=== PATIENT | male | born 1930 | race Caucasian/White ===

== ENCOUNTER 2018-11-02 15:37 | Observation (INO) | payer MEDICARE ==
[~2018-11-02] VITALS: Ht 177.8 cm; Wt 96.0 kg
[~2018-11-02 15:37] MED LIST: ASPI325T6 PO; ASPIR-LOW81 MG PO; ASPIRIN E.C. 8181 MG PO; FERROUS SU325 MG/TAB PO; FISH OIL CONC1000 MG PO; FISH OIL CONCEN1 SG2 PO; FOLIC ACID; FOLIC ACID 40400 MCG PO; MULTIPLE VITAMI1 TA1 PO; MVI; NIACIN; NIACOR500 MG PO; NORCO 325 MG-7.1 TAB PO; VITAMIN C250250 MG PO; VITAMINC500CH; ZOCOR; ZOCOR 20MG20 MG PO
[2019-05-06] MEDS ORDERED: KAPSPARGO SPRIN50 MG PO (00:47)
[2019-05-06] MEDS ORDERED: COZAAR 50MG50 MG/TAB PO (00:48)
[2019-05-06] MEDS ORDERED: ELIQUIS 5MG PO (00:49)
[2019-05-06] MEDS ORDERED: VITAMINC250CH PO (00:51)
[2019-05-06] MEDS ORDERED: LIPOFEN50 M1 PO (00:52)
[2019-05-06] MEDS ORDERED: TRICOR 48MG48 MG PO (00:53)
[2019-05-06] MEDS ORDERED: ASPIRIN 81M81 MG/TA2 (00:56)
[2019-05-06] MEDS ORDERED: TOPROL XL 50MG50 MG PO (05:41)
[2019-05-06 05:43] VITALS: BP 136/98; PULSE 96; TEMP 97.9
[2019-05-06 05:46] VITALS: BP 136/98; PULSE 96; TEMP 97.9
[2019-05-06 06:05] LABS: HEMOGLOBIN 17.7 g/dl (13.5-18.0)
--- NOTE | 2019-05-06 06:10 | NUR ---
arrived on unit per at 0515 to room 332, prepped for surgery without incident, explanation given to he and his forgoing to and returning from surgery, verbalizes understanding
[2019-05-06 06:15] LABS: CALCIUM 9.6 mg/dL (8.4-10.2); CREATININE, serum 1.59 (0.66-1.25)
[2019-05-06 06:17] LABS: HEMATOCRIT 53.7 % (42.0-52.0)
--- NOTE | 2019-05-06 07:30 | NUR ---
returned to room per bed, surgery cancelled, resting in bed with at bedside
--- NOTE | 2019-05-06 07:38 | NUR ---
Dr Sydni dodd for cardiology consult
--- NOTE | 2019-05-06 07:40 | NUR ---
telemetry on and transmission confirmed with page technician
--- NOTE | 2019-05-06 08:21 | NUR ---
spoke with Leonel MIGUEL with Dr Troy and given report for consult
--- NOTE | 2019-05-06 08:45 | NUR ---
in bed and trying to rest, informed he and his had spoke with Dr Suad MIGUEL regarding consult
[2019-05-06 08:54] VITALS: BP 152/73; PULSE 90; TEMP 97.6
--- NOTE | 2019-05-06 11:00 | NUR ---
Dr Templeton and MYRIAM in to see patient and spoke with patient and his , informed this nurse he would make a note and it was OK for Dr Watkins to proceed with surgery from his perspective, notified Dr [facility] at [facility] and informed of this, Dr Watkins does not feel comfortable doing the surgery today and wants me to inform patient and his of this, provided Dr Watkins with MYRIMA nurse's cell phone number so he can visit with Dr Templeton
[2019-05-06 11:02] VITALS: BP 164/109; PULSE 88; TEMP 97.5
--- NOTE | 2019-05-06 11:10 | NUR ---
informed Dr Templeton and Leonel MIGUEL of patient's BP of 169/109
--- NOTE | 2019-05-06 11:31 | NUR ---
spoke wiht patient and his regarding Dr Watkins not feeling comfortable doing surgery today, the especially has questions as to what will happen next, encouraged her to call replanting machine operator on Friday and also Dr Watkins' office and ask the questions she has, verbalizes understanding
--- NOTE | 2019-05-06 11:47 | NUR ---
Delilah from Case Management and Flory from Case Manager in and talking with patient and his
--- NOTE | 2019-05-06 11:54 | NUR ---
spoke with Osman, who is a nurse in the operating room with Dr Watkins, asked him to inform Dr Watkins the still has many questiona dn needs to talk with him before they discharge
--- NOTE | 2019-05-06 12:25 | NUR ---
spoke with Dr Watkins and explained to him the continues to be upset and wondering about why the cardiology and telemetry was done, that I think she may want to talk with him before they leave
--- NOTE | 2019-05-06 12:50 | NUR ---
and patient are now asking if they can just go, have explained to them again why Dr Watkins order the cardiology consult and that he is not comfortable doing the surgery and they would need to follow up with Dr Watkins, explained to them that Dr Watkins is more than happy to come and visit with them this afternoon but now they are just ready to go home, again, said Dr Watkins would come by and when the asked him he said he would just like to go ahead and go home
--- NOTE | 2019-05-06 13:03 | NUR ---
The patient's status was switched from inpatient to observation. ROSANGELA and water pump installer, Delilah, met with the patient and his to inform and to present and explain the ESTRADA form. The patient's expressed her concerns about insurance and frustrations. ROSANGELA and water pump installer provided support and answered all questions. The patient verbalized understanding, signed, and he was provided a copy. ROSANGELA then followed up with the patient and his , Lula (ph#[phone]), to discuss discharge plan. The patient lives in [place] with his . He reports independence with ADLs and does not have any DME. The patient's PCP is Dr. Rell Amaro and he receives his medications at [facility] or [facility]. He reports no difficulties obtaining his meds. The patient does not have advanced directives in EMR, but he states that he does have them completed and that his is his DPOA-HC. The patient plans to return home with his upon discharge. No additional needs at this time.
--- NOTE | 2019-05-06 13:20 | NUR ---
spoke with Dr Watkins regarding patinet asking to go home now, will plan discharge
== END 2019-05-06 13:20 | disposition home or self-care (01) ==
LOC: JCC 12-31 07:30
PROVIDERS: Nurse Anesthetist, Certified Registered; ADMIT Orthopaedic Surgery
DX: M19.011 Primary osteoarthritis, right shoulder (principal); Z53.8 Procedure and treatment not carried out for other reasons; I48.19 Other persistent atrial fibrillation; Z79.01 Long term (current) use of anticoagulants; I10 Essential (primary) hypertension; Z94.7 Corneal transplant status; Z79.899 Other long term (current) drug therapy; Z87.891 Personal history of nicotine dependence; Z80.9 Family history of malignant neoplasm, unspecified; R20.2 Paresthesia of skin; I70.0 Atherosclerosis of aorta; Z86.19 Personal history of other infectious and parasitic diseases
CPT/HCPCS: G0378; G0379; J0330; J1100; J2250; J2405; J2704; J2795; J7120

== ENCOUNTER → 2018-12-23 | Outpatient (CLI) | payer MEDICARE | LOC: COL.VAS 10:58 | DX: Z01.818 Encounter for other preprocedural examination (principal); I51.7 Cardiomegaly; I48.91 Unspecified atrial fibrillation; I35.1 Nonrheumatic aortic (valve) insufficiency; I34.8 Other nonrheumatic mitral valve disorders ==

== ENCOUNTER 2019-06-03 09:32 | Inpatient (IN) | payer MEDICARE ==
[~2019-06-03] VITALS: Ht 177.8 cm; Wt 91.9 kg
[~2019-06-03 09:32] MED LIST changes: +ASPIRIN 81M81 MG/TA2; +COZAAR 50MG50 MG/TAB PO; +ELIQUIS 5MG PO; +KAPSPARGO SPRIN50 MG PO; +LIPOFEN50 M1 PO; +TOPROL XL 50MG50 MG PO; +TRICOR 48MG48 MG PO; +VITAMINC250CH PO
[2019-06-15] MEDS ORDERED: VITAMIN C500 MG PO (11:19)
[2019-06-15] MEDS ORDERED: ALEVE 220MG220 MG PO (11:19)
[2019-06-15] MEDS ORDERED: VITAMIN FLUSH-F1 CAP (11:20)
[2019-06-17] MEDS ORDERED: BETAPACE 80MG80 MG PO (12:11)
[2019-07-12] VITALS (11 sets, daily range): BP systolic 127–171; BP diastolic 60–75; PULSE 44–94; TEMP 97.4–98
[2019-07-12] MEDS ORDERED: TOPROL XL 50MG50 MG PO (04:04)
[2019-07-12] MEDS ORDERED: ASPIRIN 81M81 MG/TA2 PO (04:05)
[2019-07-12] MEDS ORDERED: PROFERRIN ES12 MG (04:08)
--- NOTE | 2019-07-12 11:42 | NUR ---
PATIENT TO ROOM 327 PER BED WITH REPORT FROM TYSON PRASAD PACU @ 5777 PT IS A/O X3 DROWSEY AROUSES TO VERBAL. DRESSING TO RIGHT SHOULDER CDI WITH AQUACEL OVER INCISION. PT HAS CHRONIC A-FIB AND HAS BEEN IN AND OUT TODAY. CURRENTLY REGULAR RYTHM. IV TO PUMP PER ORDERS. SCDS AND TEDS BILATERALLY.
--- NOTE | 2019-07-12 11:48 | NUR ---
PT'S AT BEDSIDE. QUESTIONS ANSWERED.
--- NOTE | 2019-07-12 13:35 | NUR ---
Motorboat Mechanic met with patient and patient's Lula (ph#[phone]) to discuss discharge planning. Patient lives in [place], [place] with his and sees Dr. Amaro for primary care. Patient obtains medications from [facility] in [place] and does not use any DME. Patient is mostly independent with ADLS although he did trip and fall at home. Lula reports it was dark and patient tripped over a magazine rack. Patient plans on returning home upon discharge with his providing transportation.
--- NOTE | 2019-07-12 21:00 | NUR ---
PATIENT AWAKE, TAKES HS MEDS WITHOUT PROBLEM. REPORTS GOOD SENSATION TO FINGERS ON RT HAND AND MOVES THEM WITHOUT PROBLEM. SLING TO RIGHT ARM ON WITH ICE PACK TO INCISION. AQUACEL DRSG INTACT. HAS OXYGEN ON AND IVF INFUSING TO LEFT HAND WITHOUT REDNESS OR SWELLING. DID NOTE BRUISED RT GREAT TOE FROM TRIPPING AT HOME. IS ALERT AND ORIENTED. DENIES PAIN AT THIS TIME.
[2019-07-13 00:45] VITALS: BP 151/77; PULSE 50; TEMP 97.5
--- NOTE | 2019-07-13 04:00 | NUR ---
PATIENT DENIES NEED FOR PAIN MEDS. AWAKE, WATCHING TV. ICE PACK TO RIGHT ARM WITH SLING ON.
[2019-07-13 04:13] VITALS: BP 152/89; PULSE 70; TEMP 97.7
--- NOTE | 2019-07-13 06:45 | NUR ---
Sitting up in bed. Ice pack to right shoulder with right arm in sling. Aquacel dressing CDI. Oxygen on at 3L N.C. SCD's and ANDREA's bilaterally. Denies any pain at this time. Carnes catheter is intact. Urine clear yellow.
[2019-07-13] MEDS ORDERED: NORCO 325 MG-7.1 TAB PO (07:05)
[2019-07-13] MEDS ORDERED: ROXICODONE 55 MG/TAB PO (07:05)
[2019-07-13 07:20] VITALS: BP 164/69; PULSE 51; TEMP 97.7
--- NOTE | 2019-07-13 07:30 | NUR ---
Reports constant pain at 2 in right shoulder. Repositioned shoulder with a pillow.
--- NOTE | 2019-07-13 10:00 | NUR ---
Carnes chatheter discontinued. Aspirated 9ml of steril water out of balloon. Emptied 650ml of urine out of catheter bag. Tip of catheter was intact. Renee care was provided.
--- NOTE | 2019-07-13 11:15 | NUR ---
INT discontinued. Tip intact. No redness or swelling. Pressure applied for 2 minutes. Bandaid on.
--- NOTE | 2019-07-13 11:19 | NUR ---
Initial visit; Loren thanked for looking in on im and offering God's blessings.
--- NOTE | 2019-07-13 11:22 | NUR ---
discharge instructions reviewed with patient and . Questions solicited and answered. Pt taken by wheel chair to exit by dean for student affairs Jonelle. Agree with students assessments of this patient this shift.
== END 2019-07-13 11:15 | disposition home or self-care (01) | DRG 483 ==
LOC: JCC 07-12 05:33
PROVIDERS: ADMIT Orthopaedic Surgery
PROC: 0RRJ0JZ Replacement of Right Shoulder Joint with Synthetic Substitute, Open Approach (ICD-10-PCS; principal; 2019-07-12 07:30)
DX: M19.011 Primary osteoarthritis, right shoulder (principal); I48.91 Unspecified atrial fibrillation; E78.5 Hyperlipidemia, unspecified; I10 Essential (primary) hypertension; Z96.653 Presence of artificial knee joint, bilateral; Z96.612 Presence of left artificial shoulder joint; Z85.828 Personal history of other malignant neoplasm of skin; Z87.891 Personal history of nicotine dependence
CPT/HCPCS: A4314; A4619; A9284; C1776; J0171; J0360; J0690; J2250; J2704; J3010; J3370; J7120

== ENCOUNTER 2019-06-15 10:28 | Inpatient (IN) | payer MEDICARE ==
[~2019-06-15] VITALS: Ht 177.8 cm; Wt 96.3 kg
[2019-06-15] VITALS (9 sets, daily range): BP systolic 123–158; BP diastolic 72–113; PULSE 50–96; TEMP 96.7–97.9
[2019-06-15] MEDS ORDERED: ALEVE 220MG220 MG PO (11:19)
[2019-06-15] MEDS ORDERED: VITAMIN C500 MG PO (11:19)
[2019-06-15] MEDS ORDERED: VITAMIN FLUSH-F1 CAP (11:20)
[2019-06-15 11:28] LABS: INR 1.6 (0.8-3.0); PROTHROMBIN TIME 19.3 SECONDS (9.7-12.8)
[2019-06-15 11:29] LABS: CALCIUM 9.5 mg/dL (8.4-10.2); CREATININE, serum 1.28 (0.66-1.25); MAGNESIUM 2.1 mg/dL (1.6-2.3); POTASSIUM 4.1 mmol/L (3.4-5.0)
[2019-06-15 11:30] LABS: MEAN CELL VOLUME 94 fl (80.0-100.0); MEAN CORPUSCULAR HGB CONC 33 g/dl (33.0-37.0); MEAN PLATELET VOLUME 10.4 fl (7.4-10.4); PLATELET COUNT 226 K/mm3 (130-400); RED BLOOD COUNT 5.89 M/mm3 (4.20-5.60); REDCELL DISTRIBUTION WIDTH-CV 13.3 % (11.5-14.5)
[2019-06-15 11:31] LABS: HEMATOCRIT 55.5 % (42.0-52.0); HEMOGLOBIN 18.4 g/dl (13.5-18.0); MEAN CORPUSCULAR HEMOGLOBIN 31 pg (27.0-31.0); PARTIAL THROMBOPLASTIN TIME 39.7 SECONDS (26.0-37.0)
[2019-06-15 11:59] LABS: THYROID STIMULATING HORMONE 1.91 uIU/mL (0.465-4.680)
--- NOTE | 2019-06-15 12:45 | NUR ---
report recieved from Eduardo/Tanika RN post cardioversion that was not succcessful. Pt is awake in bed, in room. Dr Troy in room to talk with pt and on admission with Sotolol treatment, house supervior informed for bed on medical.Pt placed on Telemetry at this time. call light in reach
--- NOTE | 2019-06-15 13:15 | NUR ---
pt rests in bed, watches TV, no c/o pain or SOB.
--- NOTE | 2019-06-15 14:15 | NUR ---
after EKG was completed, Sotolol 80mg po given as ordered. Reviewed history with pt and lunch tray ordered. No changes
--- NOTE | 2019-06-15 15:00 | NUR ---
Report given to Ahsan PRASAD on 3rd floor, pt transferred via w/c with to room 309, gait stable. tele on.
--- NOTE | 2019-06-15 15:15 | NUR ---
Patient arrived to Medical room 309 at this time from [facility] unit, he is status post attempted CV x 2 this morning, he is still in A.fib but rate controlled in the 70's, vital signs stable, denies needs, present at bedside
--- NOTE | 2019-06-15 21:00 | NUR ---
Resting in bed. Assessment complete. Lungs clear. Heart sounds normal. Bowels active x4. Pulses strong throughout. No edema noted. INT left hand flushed without complications. Denies pain. Right forearm scabs/scratch present. Denies needs at this time. Call light in reach.
--- NOTE | 2019-06-15 23:52 | NUR ---
Telemetry called stating patient pulses high 40s. Patient stable. Spoke with Dr. Alves. Lower telemetry notification to 30. Orders change. Telemetry notified.
[2019-06-16] VITALS (7 sets, daily range): BP systolic 131–165; BP diastolic 68–93; PULSE 42–96; TEMP 97.5–98
--- NOTE | 2019-06-16 02:20 | NUR ---
Resting in bed asleep. Call light in reach.
--- NOTE | 2019-06-16 06:28 | NUR ---
Patient had uneventful night. Resting in bed this AM. Call light in reach.
[2019-06-16 06:43] LABS: BASO # 0.1 (0.0-0.2); BASO % 1.1 % (0.0-2.0); EOS # 0.3 (0.0-0.7); EOS % 4.5 % (0-4.0); GRAN # 3.7 (1.4-6.5); GRAN % 51.4 % (42.2-75.2); HEMOGLOBIN 17.2 g/dl (13.5-18.0); LYMPH # 2.2 (1.2-3.4); LYMPH % 30.9 % (20.0-51.0); MEAN CELL VOLUME 95 fl (80.0-100.0); MEAN CORPUSCULAR HEMOGLOBIN 31 pg (27.0-31.0); MEAN CORPUSCULAR HGB CONC 33 g/dl (33.0-37.0); MEAN PLATELET VOLUME 11.1 fl (7.4-10.4); MONO # 0.9 (0.1-0.6); MONO % 11.7 % (1.7-9.3); PLATELET COUNT 183 K/mm3 (130-400); RED BLOOD COUNT 5.54 M/mm3 (4.20-5.60); REDCELL DISTRIBUTION WIDTH-CV 13.6 % (11.5-14.5)
[2019-06-16 06:56] LABS: CALCIUM 9.2 mg/dL (8.4-10.2); CREATININE, serum 1.59 (0.66-1.25); MAGNESIUM 2.1 mg/dL (1.6-2.3); POTASSIUM 3.8 mmol/L (3.4-5.0)
[2019-06-16 07:03] LABS: HEMATOCRIT 52.8 % (42.0-52.0)
--- NOTE | 2019-06-16 07:14 | NUR ---
Report given to OSMAR Foreman
--- NOTE | 2019-06-16 09:51 | NUR ---
Assessment completed, alert/oriented, vital signs stable, denies pain or discomfort, heart irregular/ A.fib on tele/ rate 60's, QTC wnl and Sotalol given, lungs CTA/ no resp.difficulty noted, he is sitting up eating breakfast and denies other needs at this time
--- NOTE | 2019-06-16 10:00 | NUR ---
SW met with the patient to discuss discharge plan. The patient lives in [place] with his , Lula (ph#[phone]). He reports independence with ADLs and has cane and walker available, if needed. The patient's PCP is Dr. Rell Amaro and he receives his medications at [facility]. He reports no difficulties obtaining his meds. The patient has a DPOA-HC in EMR, but it lists himself. The patient states that he has a DPOA-HC, but that he is in the process of revising it. The patient plans to return home with his upon discharge. No additional needs at this time.
--- NOTE | 2019-06-17 01:35 | NUR ---
patient doing well tonight. alert and oriented. denies pain. took scheduled meds without issue. QTc 469, sotalol given. tele showing patient going in and out of afib and SR. INT to L wrist patent and flushes. made npo at midnight in case need to recardiovert if not maintaining sinus rhythm. no further needs at this time. will continue to monitor.
[2019-06-17 03:52] VITALS: BP 143/78; PULSE 87; TEMP 98.4
[2019-06-17 06:51] LABS: BASO # 0.1 (0.0-0.2); BASO % 0.9 % (0.0-2.0); EOS # 0.4 (0.0-0.7); EOS % 5.9 % (0-4.0); GRAN # 3.6 (1.4-6.5); GRAN % 53.2 % (42.2-75.2); HEMATOCRIT 51.7 % (42.0-52.0); HEMOGLOBIN 16.8 g/dl (13.5-18.0); LYMPH % 28.6 % (20.0-51.0); MEAN CELL VOLUME 95 fl (80.0-100.0); MEAN CORPUSCULAR HEMOGLOBIN 31 pg (27.0-31.0); MEAN CORPUSCULAR HGB CONC 33 g/dl (33.0-37.0); MEAN PLATELET VOLUME 11.1 fl (7.4-10.4); MONO # 0.8 (0.1-0.6); PLATELET COUNT 185 K/mm3 (130-400); RED BLOOD COUNT 5.43 M/mm3 (4.20-5.60); REDCELL DISTRIBUTION WIDTH-CV 13.7 % (11.5-14.5)
[2019-06-17 07:02] LABS: CALCIUM 9.3 mg/dL (8.4-10.2); CREATININE, serum 1.37 (0.66-1.25); MAGNESIUM 2.1 mg/dL (1.6-2.3); POTASSIUM 3.8 mmol/L (3.4-5.0)
[2019-06-17 08:20] VITALS: BP 164/82; PULSE 95; TEMP 97.8
[2019-06-17 11:28] VITALS: BP 155/126; PULSE 70; TEMP 97.6
[2019-06-17] MEDS ORDERED: BETAPACE 80MG80 MG PO (12:11)
--- NOTE | 2019-06-17 13:55 | NUR ---
Patient to home via private vehicle accompanied by @ [id number]. left floor ambulatory. Printed DC instructions to include follow up, medications, and hospital diagnosis reviewed with patient and . All questions and concerns answered at end of review.
== END 2019-06-17 13:48 | disposition home or self-care (01) | DRG 310 ==
LOC: COL.CAR 10:28 → MEDICAL 12:55 → COL.CAR 06-16 07:00 → MEDICAL 06-17 13:48
PROVIDERS: Nurse Practitioner; ADMIT Internal Medicine Cardiovascular Disease
PROC: 5A2204Z Restoration of Cardiac Rhythm, Single (ICD-10-PCS; principal; 2019-06-15)
DX: I48.0 Paroxysmal atrial fibrillation (principal); M19.90 Unspecified osteoarthritis, unspecified site; I10 Essential (primary) hypertension; Z87.891 Personal history of nicotine dependence
CPT/HCPCS: J2704